=== PATIENT | male | born 1955 | race Asian ===

== ENCOUNTER → 2017-03-17 | Outpatient (CLI) | payer BC ==
--- NOTE | 2017-03-17 12:47 | DIAGNOSTIC IMAGING REPORT ---
THYROID ULTRASOUND HISTORY: Dysphagia. Thyroid nodularity. NECK LUMP,DYPSHAGIA COMPARISON: 07/07/2011 FINDINGS: Right lobe: Maximum dimension 6.0 cm. Several nodular densities measuring up to 8 mm. Left lobe: Maximum dimension 7.7 cm. Dominant primarily cystic nodule measuring 4.8 x 3.5 cm in the lower pole region. This is similar compared to the prior study this is been previously aspirated per history. Isthmus: No nodules. IMPRESSION: 1. Multicystic multinodular thyroid. 2. Dominant primarily cystic nodule of the left thyroid essentially unchanged from the prior study 2010. 3.. Per history This been previously aspirated 4. Multiple additional nodules also stable. Electronically signed by: Alphonse Edwards M.D. 03/17/2017 12:46 PM Dictated Date/Time: 03/17/2017 12:42 PM
== END | disposition home or self-care (01) ==
LOC: C.ULTR 12:14
PROVIDERS: ATTEND Family Medicine
DX: R22.1 Localized swelling, mass and lump, neck (principal); R13.10 Dysphagia, unspecified; E04.2 Nontoxic multinodular goiter

== ENCOUNTER 2017-07-03 16:46 | Emergency (ER) | payer BC ==
[~2017-07-03] VITALS: Ht 170.2 cm; Wt 75.8 kg
[2017-07-03] MEDS ORDERED: ALUMINUM/MAGNESIUM SUSP 30 ML UDC PO STA (16:51)
[2017-07-03] MEDS ORDERED: ASPIRIN 81 MG CHEW PO STA (16:51)
[2017-07-03 16:54] VITALS: TEMP 37.2; Ht 170.2 cm; Wt 75.8 kg
--- NOTE | 2017-07-03 16:56 | EMERGENCY ROOM VISIT NOTE ---
History Report prepared by Scribe: Garima Cast Under the Supervision of: Dr. Baljit De Leon D.O. First contact with patient: 16:48 Chief Complaint: CHEST PAIN Stated Complaint: CHEST PAIN History of Present Illness The patient is a 61 year old male who presents to the Emergency Room with complaints of intermittent chest pain that started yesterday. He states the pain feels "dull" in nature and is located in the middle of his chest. This morning, he went to go on a run, when his pain worsened. He was able to run approximately 2 miles before he had to stop. Nitroglycerin provided minimal pain relief. He also experienced some lightheadedness. He admits to some " slight difficulty breathing" and diaphoresis. He denies any personal cardiac history and has never undergone a stress test or heart catheterization. His PCP is Dr. Dominique at [facility], and he last saw him a few months ago for a routine visit. The patient denies any family history of cardiac issues or sudden at a young age. Source of History: patient Onset: yesterday Position: chest Quality: dull Timing: intermittent Modifying Factors (Relieving): other (Nitroglycerin) Associated Symptoms: + diaphoresis, + SOB Review of Systems See HPI for pertinent positives & negatives. A total of 10 systems reviewed and were otherwise negative. Past Medical & Surgical Medical Problems: (1) GERD (gastroesophageal reflux disease) (2) Hypercholesterolemia (3) Hypertension Social History Alcohol Use: occasionally Drug Use: none Marital Status: Housing Status: lives with family Occupation Status: retired Current/Historical Medications Scheduled Aspirin (Aspirin Ec), 81 MG PO DAILY Fish Oil ([place]-3), 1 CAP PO DAILY Losartan Potassium (Cozaar), 50 MG PO DAILY Lutein-Zeaxanthin (Lutein), 1 CAP PO DAILY Multivitamins/Minerals (Mvi With Minerals), 1 TAB PO DAILY Travoprost (Travatan Z), 1 DROPS OPL DAILY Allergies Coded Allergies: No Known Allergies (Unverified , 07/03/17) Physical Exam Vital Signs Date Time Temp Pulse Resp B/P (MAP) Pulse Ox O2 Delivery O2 Flow Rate FiO2 07/03/17 19:40 83 18 125/81 97 07/03/17 18:08 64 15 138/84 96 Room Air 07/03/17 17:17 67 16 146/83 97 Room Air 07/03/17 17:05 94 07/03/17 17:02 97 Room Air 07/03/17 16:54 37.2 94 16 141/93 99 Room Air Physical Exam GENERAL: Patient is awake, alert, in no acute distress, patient is resting comfortably and showing no signs of anxiety EYES: The conjunctivae are clear. The pupils are round and reactive. EARS, NOSE, MOUTH AND THROAT: The nose is without any evidence of any deformity. Mucous membranes are moist tongue is midline NECK: The neck is nontender and supple. RESPIRATORY: Normal respiratory effort is noted there is no evidence of wheezing rhonchi or rales CARDIOVASCULAR: Regular rate and rhythm noted there no murmurs rubs or gallops normal S1 normal S2 GASTROINTESTINAL: The abdomen is soft. Bowel sounds are present in all quadrants. Abdomen is nontender MUSCULOSKELETAL/EXTREMITIES: There is no evidence of gross deformity full range of motion is noted in the hips and shoulders SKIN: There is no obvious evidence of any rash. There are no petechiae, pallor or cyanosis noted. NEUROLOGIC: Patient is awake alert and oriented x3 Medical Decision & Procedures ER Provider Diagnostic Interpretation: Radiology results as stated below per my review and radiologist interpretation: SINGLE VIEW CHEST CLINICAL HISTORY: Atypical chest pain. FINDINGS: An AP, portable, upright chest radiograph is obtained. No prior studies are available for comparison at the time of dictation. The examination is degraded by portable technique and patient rotation. The cardiomediastinal silhouette is unremarkable. There is mild atherosclerotic calcification of the thoracic aorta. The lungs and pleural spaces are clear. No pneumothorax is seen. The bony thorax is grossly intact. IMPRESSION: No acute cardiopulmonary abnormality. Electronically signed by: Reji Benítez M.D. 07/03/2017 5:31 PM Laboratory Results 07/03/17 17:05 Red Blood Count 5.62, Mean Corpuscular Volume 89.3, Mean Corpuscular Hemoglobin 31.0, Mean Corpuscular Hemoglobin Concent 34.7, Mean Platelet Volume 9.1, Neutrophils (%) (Auto) 53.7, Lymphocytes (%) (Auto) 39.0, Monocytes (%) (Auto) 5.6, Eosinophils (%) (Auto) 1.0, Basophils (%) (Auto) 0.6, Neutrophils # (Auto) 3.63, Lymphocytes # (Auto) 2.64, Monocytes # (Auto) 0.38, Eosinophils # (Auto) 0.07, Basophils # (Auto) 0.04 07/03/17 17:05 Test 07/03/17 17:05 07/03/17 17:10 White Blood Count 6.77 K/uL (4.8-10.8) Red Blood Count 5.62 M/uL (4.7-6.1) Hemoglobin 17.4 g/dL (14.0-18.0) Hematocrit 50.2 % (42-52) Mean Corpuscular Volume 89.3 fL (80-100) Mean Corpuscular Hemoglobin 31.0 pg (25-34) Mean Corpuscular Hemoglobin Concent 34.7 g/dl (32-36) Platelet Count 260 K/uL (130-400) Mean Platelet Volume 9.1 fL (7.4-10.4) Neutrophils (%) (Auto) 53.7 % Lymphocytes (%) (Auto) 39.0 % Monocytes (%) (Auto) 5.6 % Eosinophils (%) (Auto) 1.0 % Basophils (%) (Auto) 0.6 % Neutrophils # (Auto) 3.63 K/uL (1.4-6.5) Lymphocytes # (Auto) 2.64 K/uL (1.2-3.4) Monocytes # (Auto) 0.38 K/uL (0.11-0.59) Eosinophils # (Auto) 0.07 K/uL (0-0.5) Basophils # (Auto) 0.04 K/uL (0-0.2) RDW Standard Deviation 40.1 fL (36.4-46.3) RDW Coefficient of Variation 12.4 % (11.5-14.5) Immature Granulocyte % (Auto) 0.1 % Immature Granulocyte # (Auto) 0.01 K/uL (0.00-0.02) Prothrombin Time 10.7 SECONDS (9.0-12.0) Prothromb Time International Ratio 1.0 (0.9-1.1) Activated Partial Thromboplast Time 23.3 SECONDS (21.0-31.0) Partial Thromboplastin Ratio 0.9 Anion Gap 7.0 mmol/L (3-11) Est Creatinine Clear Calc Drug Dose 58.9 ml/min Estimated GFR () 74.1 Estimated GFR (Non- 64.0 BUN/Creatinine Ratio 15.0 (10-20) Calcium Level 9.7 mg/dl (8.5-10.1) Total Bilirubin 0.7 mg/dl (0.2-1) Direct Bilirubin 0.2 mg/dl (0-0.2) Aspartate Amino Transf (AST/SGOT) 37 U/L (15-37) Alanine Aminotransferase (ALT/SGPT) 77 U/L (12-78) Alkaline Phosphatase 72 U/L (45-117) Total Creatine Kinase 155 U/L (39-308) Creatine Kinase MB 1.1 ng/ml (0.5-3.6) Creatine Kinase MB Ratio 0.7 (0-3.0) Troponin I < 0.015 ng/ml (0-0.045) Total Protein 8.1 gm/dl (6.4-8.2) Albumin 4.2 gm/dl (3.4-5.0) Lipase 333 U/L (73-393) Urine Color YELLOW Urine Appearance CLOUDY (CLEAR) Urine pH 8.0 (4.5-7.5) Urine Specific Ashley 1.018 (1.000-1.030) Urine Protein NEG (NEG) Urine Glucose (UA) NEG (NEG) Urine Ketones NEG (NEG) Urine Occult Blood NEG (NEG) Urine Nitrite NEG (NEG) Urine Bilirubin NEG (NEG) Urine Urobilinogen NEG (NEG) Urine Leukocyte Esterase NEG (NEG) Urine WBC (Auto) 0 /hpf (0-5) Urine RBC (Auto) 0-4 /hpf (0-4) Urine Hyaline Casts (Auto) 0 /lpf (0-5) Urine Epithelial Cells (Auto) 0-5 /lpf (0-5) Urine Bacteria (Auto) NEG (NEG) Laboratory results per my review. Medications Administered Medications (Trade) Dose Ordered Sig/Rosalva Route Start Time Stop Time Status Last Admin Dose Admin Al Hydroxide/Mg Hydroxide (Maalox Susp) 30 ml NOW STAT PO 07/03/17 16:51 07/03/17 16:53 DC 07/03/17 16:58 30 ML Aspirin (Aspirin Chew) 324 mg NOW STAT PO 07/03/17 16:51 07/03/17 16:53 DC 07/03/17 16:58 324 MG ECG Indication: chest pain Rate (beats per minute): 80 Rhythm: normal sinus Findings: no ectopy, other (No acute ST segment abnormalities) Comparison ECG Date: no prior available ED Course 1648: The patient was evaluated in room A12. A complete history and physical examination were performed. 1650: Aspirin 324 mg PO, Maalox Susp 30 ml PO. 1819: I discussed the patients case with Dr. Abel, [facility] Hospitalist. The patient will be further evaluated. 1901: Case Management informed me the patient feels better and would like to go home. 1920: I reevaluated the patient. I discussed the risks associated with leaving the hospital against medical advice and he verbalized complete understanding. Medical Decision Prior records/ancillary studies reviewed. Triage Nursing notes reviewed. The patient's history was concerning for chest pain. Differential diagnosis: Etiologies such as cardiac ischemia, aortic dissection, pulmonary embolism, pneumonia, pneumothorax, musculoskeletal, infections, pericarditis, myocarditis , esophageal rupture, gastrointestinal, as well as others were entertained. The patient has a heart score of 3. The patient is a 61-year-old male who presented to the emergency department for an evaluation of chest pain. The patient describes episodes of chest pain over the left side in the retrosternal region. This appears to be related to exertion. The patient presented to the emergency Department pain free. The patient was treated with aspirin in the emergency department. I discussed the patient's laboratory and radiographic studies with him. I also discussed the limitations of the emergency department workup for chest pain. Discussed his case with the on-call [facility] hospitalist. They've agreed to evaluate the patient in the emergency department for further management and disposition. The patient requested to be discharged to home. Given the patient's description of pain I'm very concerned that this could represent angina. I discussed this with the patient. I discussed the risks of leaving and the patient ultimately signed out AGAINST MEDICAL ADVICE. He was encouraged to rest and avoid any strenuous activity. He was also encouraged to follow-up with his family doctor soon as possible for a stress test or other provocative testing. He was also encouraged to return to the emergency apartment immediately if symptoms change worsen or need arises. Medication Reconcilliation Current Medication List: was personally reviewed by me Blood Pressure Screening Patient's blood pressure: Elevated blood pressure Blood pressure disposition: Elevated BP felt to be situational Consults Time Called: 1814 Consulting Physician: Dr. Abel [facility] Hospitalist Returned Call: [phone] I discussed the patients case with Dr. Abel [facility] Hospitalist. The patient will be further evaluated. Impression Primary Impression: Chest pain Scribe Attestation The scribe's documentation has been prepared under my direction and personally reviewed by me in its entirety. I confirm that the note above accurately reflects all work, treatment, procedures, and medical decision making performed by me. Departure Information Dispostion Against Medical Advice Referrals Bran Canada M.D. (PCP) Patient Instructions ED Chest Pain Atypical Unkn Cause, My [facility] Additional Instructions Return to the emergency department immediately if symptoms change worsen or the need arises. Rest and avoid any strenuous activity. Continue all medications as prescribed. Follow-up with your family doctor soon as possible to discuss the possibility that you may require further studies such as a stress test to evaluate the cause of your pain.
[2017-07-03 17:15] LABS: BASO % 0.6 %; BASO ABS # 0.04 K/uL (0-0.2); COMPLETE YES; HEMATOCRIT 50.2 % (42-52); IG% 0.1 %; LYMPH ABS # 2.64 K/uL (1.2-3.4); MEAN CELL VOLUME 89.3 fL (80-100); MEAN CORPUSCULAR HGB CONC 34.7 g/dl (32-36); MEAN PLATELET VOLUME 9.1 fL (7.4-10.4); MONO % 5.6 %; NEUT % 53.7 %; PLATELET COUNT 260 K/uL (130-400); RED BLOOD COUNT 5.62 M/uL (4.7-6.1); WHITE BLOOD COUNT 6.77 K/uL (4.8-10.8)
[2017-07-03 17:24] LABS: PARTIAL THROMBOPLASTIN RATIO 0.9; PROTHROMBIN TIME (PATIENT) 10.7 SECONDS (9.0-12.0)
[2017-07-03] MEDS ORDERED: LUTE15CA PO (17:30)
[2017-07-03] MEDS ORDERED: MULT-513 PO (17:30)
[2017-07-03] MEDS ORDERED: TRAV0.00 OPL (17:30)
[2017-07-03] MEDS ORDERED: ASPI81TA28 PO (17:30)
[2017-07-03] MEDS ORDERED: LOSA50TA6 PO (17:30)
[2017-07-03] MEDS ORDERED: OMEG10007 PO (17:30)
[2017-07-03 17:32] LABS: ALT/SGPT 77 U/L (12-78); BLOOD UREA NITROGEN 18 mg/dl (7-18); CALCIUM 9.7 mg/dl (8.5-10.1); CARBON DIOXIDE 26 mmol/L (21-32); CHLORIDE 106 mmol/L (98-107); GLUCOSE 104 mg/dl (70-99); POTASSIUM 3.7 mmol/L (3.5-5.1); SODIUM 139 mmol/L (136-145)
--- NOTE | 2017-07-03 17:32 | DIAGNOSTIC IMAGING REPORT ---
SINGLE VIEW CHEST CLINICAL HISTORY: Atypical chest pain. FINDINGS: An AP, portable, upright chest radiograph is obtained. No prior studies are available for comparison at the time of dictation. The examination is degraded by portable technique and patient rotation. The cardiomediastinal silhouette is unremarkable. There is mild atherosclerotic calcification of the thoracic aorta. The lungs and pleural spaces are clear. No pneumothorax is seen. The bony thorax is grossly intact. IMPRESSION: No acute cardiopulmonary abnormality. Electronically signed by: Reji Benítez M.D. 07/03/2017 5:31 PM Dictated Date/Time: 07/03/2017 5:30 PM
[2017-07-03 17:38] LABS: ALKALINE PHOSPHATASE 72 U/L (45-117); AST/SGOT 37 U/L (15-37); CKMB/CK RATIO 0.7 (0-3.0)
[2017-07-03 17:40] LABS: URINE APPEARANCE CLOUDY (CLEAR); URINE BILIRUBIN NEG (NEG); URINE COLOR YELLOW; URINE EPITHELIAL CELL AUTO 0-5 /lpf (0-5); URINE NITRITE NEG (NEG); URINE SPECIFIC GRAVITY 1.018 (1.000-1.030); UROBILINOGEN NEG (NEG)
[2017-07-03 17:47] LABS: MANUAL MICROSCOPIC REQUIRED? NO; REVIEW REQ? NO
[2017-07-03 19:40] VITALS: BP 125/81; PULSE 83; O2SAT 97
== END 2017-07-03 19:40 | disposition left against medical advice (07) ==
LOC: C.EDB 16:48 → C.EDA 19:40
DX: R07.9 Chest pain, unspecified (principal); R42 Dizziness and giddiness; I10 Essential (primary) hypertension; Z79.82 Long term (current) use of aspirin; Z79.899 Other long term (current) drug therapy

== ENCOUNTER 2017-07-10 12:34 | Observation (INO) | payer BC ==
[~2017-07-10] VITALS: Ht 170.2 cm; Wt 73.2 kg
[~2017-07-10 12:34] MED LIST: ASPI81TA28 PO; LOSA50TA6 PO; LUTE15CA PO; MULT-513 PO; OMEG10007 PO; TRAV0.00 OPL
[2017-07-10] MEDS ORDERED: ASPIRIN 81 MG CHEW PO STA (12:57)
[2017-07-10] MEDS ORDERED: NITROGLYCERIN OINT 2% 1GM PACKET EXT STA (12:57)
--- NOTE | 2017-07-10 13:09 | EMERGENCY ROOM VISIT NOTE ---
History Report prepared by Yfn: Yehuda Arechiga Under the Supervision of: Dr. Reji Reis M.D. First contact with patient: 12:53 Chief Complaint: CHEST PAIN Stated Complaint: CHEST PAIN, SOB Nursing Triage Summary: Pt c/o constant mid chest pain for 9 days. Seen last Wednesday for same. [facility] SOB and today tingling in left hand History of Present Illness The patient is a 61 year old male who presents to the Emergency Room with complaints of constant dull centralized chest pain that began a couple of hours ago. He rates his pain a 5/10 in severity. He was seen in the ER 1 week ago for these same symptoms. He was discharged after receiving laboratory work and an ECG. He declined a cardiac stress test. Over this week, his pain lingered as well as his lightheadedness and dizziness. However, earlier today his chest pain came back with shortness of breath as well. He notes some tingling to his left hand. This respiratory issue and left hand feeling are both new today. His chest pain does not radiate anywhere else in his body. 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 He denies any personal history of cardiac disease or previous OR's. He has a history of hypertension. He denies any abdominal pain. He does have a family history of cardiac disease. The patient notes that he and his were in [place] recently for three weeks, and he forgot to bring his hypertension medication. He started it again as soon as he got back. He also takes a baby Aspirin daily. Source of History: patient Onset: a couple of hours ago Position: chest (centralized) Symptom Intensity: 5/10 Quality: dull Timing: constant Modifying Factors (Worsening): exertion Associated Symptoms: + SOB, No abdominal pain Note: He is having lightheadedness and dizziness as well. Review of Systems See HPI for pertinent positives & negatives. A total of 10 systems reviewed and were otherwise negative. Past Medical & Surgical Medical Problems: (1) GERD (gastroesophageal reflux disease) (2) Hypercholesterolemia (3) Hypertension Family History FH: heart disease Social History Smoking Status: Never Smoker Smokeless Tobacco Use: No Alcohol Use: occasionally Drug Use: none Marital Status: Housing Status: lives with family Occupation Status: retired Current/Historical Medications Scheduled Aspirin (Aspirin Ec), 81 MG PO DAILY Fish Oil ([place]-3), 1 CAP PO DAILY Losartan Potassium (Cozaar), 50 MG PO AFTERNOON Lutein-Zeaxanthin (Lutein), 1 CAP PO DAILY Multivitamins/Minerals (Mvi With Minerals), 1 TAB PO DAILY Travoprost (Travatan Z), 1 DROPS OPL DAILY Allergies Coded Allergies: No Known Allergies (Unverified , 07/10/17) Physical Exam Vital Signs Date Time Temp Pulse Resp B/P (MAP) Pulse Ox O2 Delivery O2 Flow Rate FiO2 07/10/17 14:16 68 18 134/83 97 07/10/17 13:06 73 18 138/81 96 07/10/17 12:49 75 07/10/17 12:36 36.7 75 18 117/62 100 Room Air 07/10/17 12:36 99 Room Air Physical Exam GENERAL: Patient is in no acute distress. HEENT: No acute trauma, normocephalic atraumatic, mucous membranes moist, no nasal congestion, no scleral icterus. NECK: No stridor, no adenopathy, no meningismus, trachea is midline. LUNGS: Clear to auscultation bilaterally, no wheeze, no rhonchi, breath sounds equal. HEART: Without murmurs gallops or rubs, regular rate and rhythm. ABDOMEN: Soft, nontender, bowel sounds positive, no hernias, no peritonitis. EXTREMITIES: No cyanosis or edema, full range of motion of all the joints without pain or difficulty, no signs for acute trauma. NEUROLOGIC: Oriented x 3, no acute motor or sensory deficits, no focal weakness. SKIN: No rash, no jaundice, no diaphoresis. Medical Decision & Procedures ER Provider Diagnostic Interpretation: Radiology results as stated below per my review and radiologist interpretation: SINGLE VIEW CHEST CLINICAL HISTORY: Atypical chest pain. FINDINGS: 2 AP, portable, upright chest radiographs are compared to study dated 07/03/2017. The examination is degraded by portable technique and patient rotation. The heart is top normal for projection. The pulmonary vasculature is noncongested. Thyromegaly is suspected. There is atherosclerotic calcification of the thoracic aorta. The lungs and pleural spaces are clear. No pneumothorax is seen. The bony thorax is grossly intact. IMPRESSION: No acute cardiopulmonary abnormality. Electronically signed by: Reji Benítez M.D. 07/10/2017 1:22 PM Dictated Date/Time: 07/10/2017 1:21 PM Laboratory Results 07/10/17 12:50 07/10/17 12:50 Test 07/10/17 12:50 07/10/17 13:38 Red Blood Count 5.47 M/uL (4.7-6.1) Mean Corpuscular Volume 89.4 fL (80-100) Mean Corpuscular Hemoglobin 30.7 pg (25-34) Mean Corpuscular Hemoglobin Concent 34.4 g/dl (32-36) RDW Standard Deviation 40.7 fL (36.4-46.3) RDW Coefficient of Variation 12.4 % (11.5-14.5) Mean Platelet Volume 9.5 fL (7.4-10.4) Anion Gap 10.0 mmol/L (3-11) Est Creatinine Clear Calc Drug Dose 61.5 ml/min Estimated GFR () 78.1 Estimated GFR (Non- 67.4 BUN/Creatinine Ratio 11.7 (10-20) Calcium Level 9.1 mg/dl (8.5-10.1) Total Bilirubin 0.8 mg/dl (0.2-1) Aspartate Amino Transf (AST/SGOT) 29 U/L (15-37) Alanine Aminotransferase (ALT/SGPT) 62 U/L (12-78) Alkaline Phosphatase 73 U/L (45-117) Troponin I < 0.015 ng/ml (0-0.045) Total Protein 7.9 gm/dl (6.4-8.2) Albumin 3.9 gm/dl (3.4-5.0) Globulin 4.0 gm/dl (2.5-4.0) Albumin/Globulin Ratio 1.0 (0.9-2) Lipase 337 U/L (73-393) Prothrombin Time 10.3 SECONDS (9.0-12.0) Prothromb Time International Ratio 1.0 (0.9-1.1) Activated Partial Thromboplast Time 26.1 SECONDS (21.0-31.0) Partial Thromboplastin Ratio 1.0 Laboratory results reviewed by me. Medications Administered Medications (Trade) Dose Ordered Sig/Rosalva Route Start Time Stop Time Status Last Admin Dose Admin Nitroglycerin (Nitroglycerin 2% Oint) 0.5 inch NOW STAT EXT 07/10/17 12:57 07/10/17 13:00 DC 07/10/17 13:08 0.5 INCH Aspirin (Aspirin Chew) 324 mg NOW STAT PO 07/10/17 12:57 07/10/17 13:00 DC 07/10/17 13:08 324 MG ECG Indication: chest pain Rate (beats per minute): 75 Rhythm: normal sinus Findings: nonspecific-ST abn (Diffusely), no ectopy Comparison ECG Date: 07/03/17 Change: Nonspecific ST abnormalities are new compared to old. ED Course 1253: The patient was evaluated in room B5. A complete history and physical exam was performed. 1257: Ordered Aspirin 324 mg PO, Nitroglycerin 0.5 inch EXT 1357: He is feeling better after receiving Nitroglycerin. 1400: Upon reexamination the patient is resting. I discussed results and treatment plan with the patient. He verbalizes agreement and understanding. The patient will be [place]. Du [place] [facility]. Medical Decision Differential diagnosis includes but is not limited to cardiac ischemia, angina, OR, musculoskeletal pain, pneumothorax, pneumonia, pulmonary embolism, and aortic dissection. There is no leukocytosis or concerning anemia. No significant electrolyte abnormality, kidney failure, hepatitis. There is no coagulopathy. No evidence for pancreatitis. EKG shows a normal sinus rhythm with some nonspecific ST change. No acute ischemia. Cardiac enzyme testing 1 is not suggestive of acute cardiac injury. Chest film does not show pneumonia, mediastinal widening or pneumothorax. Patient was given oral aspirin and Nitropaste. His chest pain improved with the Nitropaste. The patient presents with exertional chest pain. I do think a hospital stay is warranted. He has improved with nitroglycerin. I spoke with the patient and case management. The on-call hospitalist was consulted. Medication Reconcilliation Current Medication List: was personally reviewed by me Blood Pressure Screening Patient's blood pressure: Normal blood pressure Blood pressure disposition: Did not require urgent referral Consults Time Called: 1355 Consulting Physician: Dr. Du [place] [facility] Returned Call: 1400 Discussed the patient's case. The patient will be evaluated for further management. Impression Primary Impression: Precordial chest pain Scribe Attestation The scribe's documentation has been prepared under my direction and personally reviewed by me in its entirety. I confirm that the note above accurately reflects all work, treatment, procedures, and medical decision making performed by me. Departure Information Dispostion Being Evaluated By Hospitalist Referrals Bran Canada M.D. (PCP) Patient Instructions My [facility]
[2017-07-10 13:16] LABS: HEMATOCRIT 48.9 % (42-52); MEAN CELL VOLUME 89.4 fL (80-100); MEAN CORPUSCULAR HEMOGLOBIN 30.7 pg (25-34); MEAN CORPUSCULAR HGB CONC 34.4 g/dl (32-36); MEAN PLATELET VOLUME 9.5 fL (7.4-10.4); PLATELET COUNT 276 K/uL (130-400); RED BLOOD COUNT 5.47 M/uL (4.7-6.1); WHITE BLOOD COUNT 5.58 K/uL (4.8-10.8)
--- NOTE | 2017-07-10 13:24 | DIAGNOSTIC IMAGING REPORT ---
SINGLE VIEW CHEST CLINICAL HISTORY: Atypical chest pain. FINDINGS: 2 AP, portable, upright chest radiographs are compared to study dated 07/03/2017. The examination is degraded by portable technique and patient rotation. The heart is top normal for projection. The pulmonary vasculature is noncongested. Thyromegaly is suspected. There is atherosclerotic calcification of the thoracic aorta. The lungs and pleural spaces are clear. No pneumothorax is seen. The bony thorax is grossly intact. IMPRESSION: No acute cardiopulmonary abnormality. Electronically signed by: Reji Benítez M.D. 07/10/2017 1:22 PM Dictated Date/Time: 07/10/2017 1:21 PM
[2017-07-10 13:33] LABS: ALT/SGPT 62 U/L (12-78); AST/SGOT 29 U/L (15-37); BLOOD UREA NITROGEN 14 mg/dl (7-18); BUN/CREATININE RATIO 11.7 (10-20); CALCIUM 9.1 mg/dl (8.5-10.1); CARBON DIOXIDE 23 mmol/L (21-32); CHLORIDE 108 mmol/L (98-107); CREATININE 1.15 mg/dl (0.60-1.40); GLUCOSE 159 mg/dl (70-99); POTASSIUM 3.7 mmol/L (3.5-5.1); SODIUM 141 mmol/L (136-145)
[2017-07-10 13:38] LABS: ALKALINE PHOSPHATASE 73 U/L (45-117)
[2017-07-10 14:18] LABS: PROTHROMBIN TIME (PATIENT) 10.3 SECONDS (9.0-12.0)
--- NOTE | 2017-07-10 14:44 | History and Physical ---
History & Physical Date & Time of Service: Jul 10, 2017 at 14:22 Chief Complaint: Chest Pain, Sob Primary Care Physician: Bran Canada M.D. History of Present Illness Source: patient, clinic records, hospital records Patient is a 61 y/o male, with PMHx of HTN, HLD, and GERD, who presented to the ED because of continued chest pain x1 week. Patient was moving a fridge today when he started to become SOB, lightheadedness, diaphoretic, and dull central chest radiating to L arm. Patient was seen at [facility] ED on 07/03/17 due to similar symptoms. He was treated w/ ASA and Maalox. It was recommended patient be admitted for further evaluation. However, symptoms improved in ED and patient left AMA. Patient states chest pain has never completely resolved since leaving AMA. SOB continues to worsen with activity. He notes Maalox improved his symptoms during last ED visit. He does have a history of GERD. He has not taken any PPI/anti-acids recently. He denies any cardiac history. He denies any DVT/PE. Denies palpitations, pleuritic chest pain, calf tenderness, cough. No tachycardia noted. He was recently in [place] for 3 weeks- he forgot his BP medication but did continue taking ASA 81 mg daily. Patient denies any fever, chills, sweats, dizziness, vision changes, palpitations, edema, wheezing, cough , abdominal pain, nausea, vomiting, diarrhea, urinary symptoms, melena, numbness /tingling, weakness, muscle/joint pain, anxiety/depression, active bleeding, or new skin discoloration/changes. Past Medical/Surgical History Past Medical History: HTN HLD GERD Past Surgical History: retina surgery Family History FH: heart disease Social History Smoking Status: Never Smoker Smokeless Tobacco Use: No Drug Use: none Marital Status: Occupational Status: retired Multi-Drug Resistant Organisms History of MDRO: No Allergies Coded Allergies: No Known Allergies (Unverified , 07/10/17) Home Medications Scheduled Aspirin (Aspirin Ec), 81 MG PO DAILY Fish Oil ([place]-3), 1 CAP PO DAILY Losartan Potassium (Cozaar), 50 MG PO AFTERNOON Lutein-Zeaxanthin (Lutein), 1 CAP PO DAILY Multivitamins/Minerals (Mvi With Minerals), 1 TAB PO DAILY Travoprost (Travatan Z), 1 DROPS OPL DAILY Physical Exam Vital Signs Date Time Temp Pulse Resp B/P (MAP) Pulse Ox O2 Delivery O2 Flow Rate FiO2 07/10/17 14:16 68 18 134/83 97 07/10/17 13:06 73 18 138/81 96 07/10/17 12:49 75 07/10/17 12:36 36.7 75 18 117/62 100 Room Air 07/10/17 12:36 99 Room Air Diagnostics Laboratory Results Results Past 24 Hours Test 07/10/17 12:50 07/10/17 13:38 Range/Units White Blood Count 5.58 4.8-10.8 K/uL Red Blood Count 5.47 4.7-6.1 M/uL Hemoglobin 16.8 14.0-18.0 g/dL Hematocrit 48.9 42-52 % Mean Corpuscular Volume 89.4 80-100 fL Mean Corpuscular Hemoglobin 30.7 25-34 pg Mean Corpuscular Hemoglobin Concent 34.4 32-36 g/dl RDW Standard Deviation 40.7 36.4-46.3 fL RDW Coefficient of Variation 12.4 11.5-14.5 % Platelet Count 276 130-400 K/uL Mean Platelet Volume 9.5 7.4-10.4 fL Sodium Level 141 136-145 mmol/L Potassium Level 3.7 3.5-5.1 mmol/L Chloride Level 108 98-107 mmol/L Carbon Dioxide Level 23 21-32 mmol/L Anion Gap 10.0 3-11 mmol/L Blood Urea Nitrogen 14 7-18 mg/dl Creatinine 1.15 0.60-1.40 mg/dl Est Creatinine Clear Calc Drug Dose 61.5 ml/min Estimated GFR () 78.1 Estimated GFR (Non- 67.4 BUN/Creatinine Ratio 11.7 10-20 Random Glucose 159 70-99 mg/dl Calcium Level 9.1 8.5-10.1 mg/dl Total Bilirubin 0.8 0.2-1 mg/dl Aspartate Amino Transf (AST/SGOT) 29 15-37 U/L Alanine Aminotransferase (ALT/SGPT) 62 12-78 U/L Alkaline Phosphatase 73 45-117 U/L Troponin I < 0.015 0-0.045 ng/ml Total Protein 7.9 6.4-8.2 gm/dl Albumin 3.9 3.4-5.0 gm/dl Globulin 4.0 2.5-4.0 gm/dl Albumin/Globulin Ratio 1.0 0.9-2 Lipase 337 73-393 U/L Prothrombin Time 10.3 9.0-12.0 SECONDS Prothromb Time International Ratio 1.0 0.9-1.1 Activated Partial Thromboplast Time 26.1 21.0-31.0 SECONDS Partial Thromboplastin Ratio 1.0 Diagnostic Radiology SINGLE VIEW CHEST CLINICAL HISTORY: Atypical chest pain. FINDINGS: 2 AP, portable, upright chest radiographs are compared to study dated 07/03/2017. The examination is degraded by portable technique and patient rotation. The heart is top normal for projection. The pulmonary vasculature is noncongested. Thyromegaly is suspected. There is atherosclerotic calcification of the thoracic aorta. The lungs and pleural spaces are clear. No pneumothorax is seen. The bony thorax is grossly intact. IMPRESSION: No acute cardiopulmonary abnormality. Electronically signed by: Reji Benítez M.D. 07/10/2017 1:22 PM Dictated Date/Time: 07/10/2017 1:21 PM The status of this report is Signed. Draft = Not yet reviewed or approved by Radiologist. Signed = Reviewed and approved by Radiologist. EKG AVELINA SAENZ ID:[id number] 10-JUL-2017 12:39:34 [facility] Normal sinus rhythm Normal ECG When compared with ECG of 03-JUL-2017 16:51, No significant change was found 25mm/s 10mm/mV 150Hz 8.0 SP2 12SL 241 CECI: 0 Referred by: Referred Self Unconfirmed Vent. rate 75 BPM LA interval 178 ms QRS duration 82 ms QT/QTc 384/428 ms P-R-T axes 62 12 14 1955 (61 yr) Male Room: Loc:15 Custom Tailor:Makenna Treviño ind: Impression Assessment and Plan Patient is a 61 y/o male, with PMHx of HTN, HLD, and GERD, who presented to the ED because of continued chest pain x1 week. Chest pain, ACS r/o vs GERD vs PE vs other etiology: - Admit to tele for cardiac monitoring - Trend cardiac enzymes- initial trop negative - O2 protocol - EKG QAM and PRN chest pain - IV Morphine and Nitro PRN chest pain - Check lipid panel and HgbA1c - Will keep NPO after MD for ?intervention/further workup needed - stress ECHO tomorrow if cardiac enzymes negative HTN: Continue Losartan 50 mg daily HLD: - Check lipid panel - Continue Fish Oil GI prophylaxis: Protonix 40 mg daily DVT prophylaxis: Heparin SQ BID Code Status: LEVEL I, FULL Dispo: From home, lives w/ - PT/OT and CM consulted Physician Supervision Note: I was present with the PA during the history and exam. I discussed the case with the PA and agree with the findings and plan as documented in the note. Any exceptions or clarifications are listed here: 61 y/o M HTN, HPL, family history of CAD Presents with exertional SOB and CP - intermit > 1 wk - occurred today while raking Recently returned from an [place] holiday where he had not complied with his medications AAO x 3 S1,2 R CTAB NT, ND No CCE P: Symptoms/history concerning for progressive angina Would recommend inpt stress Placed on ASA, Statin - serial enzymes ordered Assigned to telemetry overnight Documented By: Dagoberto Du Level of Care Telemetry Resuscitation Status FULL RESUSCITATION VTE Prophylaxis Given or contraindicated: Unfractionated heparin SQ, T.E.D. Stockings, SCD's
[2017-07-10] MEDS ORDERED: ALUMINUM/MAGNESIUM/SIMETH (MAALOX MAX) 30 ML UDC PO PRN ×2 (15:00→20:15)
[2017-07-10] MEDS ORDERED: ONDANSETRON INJ 2 MG/ML 2 ML VIAL IV PRN (15:00)
[2017-07-10] MEDS ORDERED: MAGNESIUM HYDROXIDE SUSP 30 ML UDC PO PRN (15:00)
[2017-07-10] MEDS ORDERED: ACETAMINOPHEN 325 MG TAB PO PRN (15:00)
[2017-07-10] MEDS ORDERED: POLYETHYLENE (MIRALAX) 17 GM PACK PO PRN (15:00)
[2017-07-10] MEDS ORDERED: NITROGLYCERIN 0.4 MG SL PER TAB CHARGE SL PRN (15:00)
[2017-07-10] MEDS ORDERED: MoRPHine SULFATE 2 MG/ML CARP IV PRN (15:00)
[2017-07-10 15:27] VITALS: Ht 170.2 cm; Wt 73.2 kg
[2017-07-10 15:52] VITALS: O2SAT 98
[2017-07-10] MEDS ORDERED: ATORVASTATIN 20 MG TAB PO SCH ×2 (16:00)
[2017-07-10 16:21] VITALS: BP 132/88; PULSE 76; TEMP 36.9; O2SAT 96
[2017-07-10] MEDS ORDERED: IV FLUIDS COMPLETED PRN (17:45)
[2017-07-10 19:16] VITALS: BP 135/79; PULSE 73; TEMP 36.9; O2SAT 97
[2017-07-10] MEDS ORDERED: TRAVOPROST Z 0.004% OPH SOLN 2.5 ML BTL OPL SCH (21:00)
[2017-07-10] MEDS: HEPARIN SOD 5000 UNIT/0.5 ML CARP SQ SCH (21:10)
[2017-07-10 22:58] VITALS: BP 131/73; PULSE 64; TEMP 36.9; O2SAT 95
[2017-07-11 04:18] VITALS: BP 113/72; PULSE 60; TEMP 36.8; O2SAT 98
[2017-07-11 05:39] LABS: CHOLESTEROL 191 mg/dl (0-200); CHOLESTEROL/HDL RATIO 4.5; HDL CHOLESTEROL 42 mg/dl; LDL CHOLESTEROL CALCULATED 114 mg/dl; TRIGLYCERIDES 174 mg/dl (0-150); VERY LOW DENSITY LIPOPROT CALC 35 mg/dl
[2017-07-11 07:31] VITALS: BP 104/71; PULSE 67; TEMP 36.8; O2SAT 96
[2017-07-11] MEDS ORDERED: ASPIRIN 81 MG ECTAB PO SCH (09:00)
[2017-07-11] MEDS ORDERED: LOSARTAN POTASSIUM 50 MG TAB PO SCH (09:00)
[2017-07-11] MEDS ORDERED: PANTOprazole SOD 40 MG TAB PO SCH (09:00)
[2017-07-11] MEDS ORDERED: OMEGA-3 (PURIFIED FISH OIL) 1 GM CAP PO SCH (09:00)
[2017-07-11] MEDS ORDERED: CEROVITE ADV FORMULA TAB PO SCH (09:00)
[2017-07-11] MEDS: HEPARIN SOD 5000 UNIT/0.5 ML CARP SQ SCH (09:53)
[2017-07-11 10:00] LABS: ESTIMATED AVERAGE GLUCOSE 111 mg/dl; HA1C FLAG Normal (Normal)
[2017-07-11 12:51] VITALS: BP 120/75; PULSE 86; TEMP 36.6; O2SAT 96
--- NOTE | 2017-07-11 13:13 | Discharge Instructions ---
Discharge Instructions Date of Service Jul 11, 2017. Admission Reason for Admission: Precordial Chest Pain Discharge Discharge Diagnosis / Problem: chest pain likely musculoskeletal Discharge Goals Goal(s): Decrease discomfort Activity Recommendations Activity Limitations: resume your previous activity Driving or Machine Use: no limitations . Current Hospital Diet Patient's current hospital diet: AHA Diet (Heart Healthy) Discharge Diet Recommended Diet: Low Fat Diet Pending Studies Studies pending at discharge: no Laboratory Results Hemoglobin A1c Test 07/11/17 04:46 Range/Units Estimated Average Glucose 111 mg/dl Hemoglobin A1c 5.5 4.5-5.6 % Lipid Panel Test 07/11/17 04:46 Range/Units Triglycerides Level 174 H 0-150 mg/dl Cholesterol Level 191 0-200 mg/dl HDL Cholesterol 42 mg/dl Cholesterol/HDL Ratio 4.5 LDL Cholesterol, Calculated 114 mg/dl Medical Emergencies . Who to Call and When: Medical Emergencies: If at any time you feel your situation is an emergency, please call 911 immediately. . Non-Emergent Contact Non-Emergency issues call your: Primary Care Provider . . "Provider Documentation" section prepared by Piotr Bowen. . VTE Core Measure Inpt VTE Proph given/why not?: Unfractionated heparin SQ, T.ESolange. Stockings, SCD 's
[2017-07-11] MEDS ORDERED: FAMO20TA11 PO (13:16)
--- NOTE | 2017-07-11 13:20 | EXERCISE STRESS ECHO ---
*NOTICE TO RECEIVING [employer]Y This information is strictly Confidential and protected under [place] law. [place] law prohibits you from making any further disclosure of this information unless further disclosure is expressly permitted by the written consent of the person to whom it pertains or is authorized by law. A general authorization for the release of medical or other information is not sufficient for this purpose. Hospital accepts no responsibility if the information is made available to any other person, INCLUDING THE PATIENT. Interpretation Summary * Name: AVELINA SAENZ Study Date: 07/11/2017 10:52 AM BP: 121/74 mmHg * Patient Location: [facility] HR: 67 * : 1955 (M/d/yyyy) Gender: Male Height: 67 in * Age: 61 yrs Ethnicity: Weight: 164 lb * Ordering Physician: Kat Branch * Referring Physician: Self, Referred * Performed By: Izaiah Rojas RCS * * Reason For Study: Chest Pain * BSA: 1.9 m2 * -- Conclusions -- * 1. Normal stress echocardiogram at 10.8 METS and a peak heart rate greater than 100% predicted maximum. * 2. No exercise-induced chest pain. * 3. No EKG changes. * 4. Baseline echocardiogram notes normal left ventricular systolic function without wall motion abnormality. Procedure Details * Left Ventricle The left ventricle is normal in size. There is normal left ventricular wall thickness. Left ventricular systolic function is normal. No segmental left ventricular wall motion abnormalities are noted. Resting wall motion: Normal. Stress wall motion: Appropriate increase in Left ventricular systolic function and decrease in cavity size. No stress induced segmental wall motion abnormalities. * Stress Parameters The stress portion of this study was personally supervised by the undersigned interpreting physician. Rest heart rate was '67' BPM. Rest blood pressure was '121/74' Maximum heart rate achieved was 166 bpm. Maximum heart rate was 105 % of maximum age-predicted heart rate. Maximum blood pressure was '201/101' Total exercise time was '9:30' Maximum exercise MET level achieved was '10.8' METS Maximum treadmill speed was '4.2' miles per hour. Maximum treadmill elevation was '16'% grade. Exercise was terminated due to 'fatigue after achieving target heart rate' Normal blood pressure response to exercise. *
[2017-07-11 13:22] VITALS: BP 120/75; PULSE 86; TEMP 36.6; O2SAT 96
--- NOTE | 2017-07-11 13:51 | Discharge Summary ---
Discharge Summary Date of Service Jul 11, 2017. Discharge Summary Admission Date: Jul 10, 2017 at 15:07 Discharge Date: Jul 11, 2017 Discharge Disposition: Home Principal Diagnosis: chest pain likely musculoskeletal or secondary to gastric reflux Problems/Secondary Diagnoses: Musculoskeletal chest pain GERD Hypertension Borderline dyslipidemia Medication Reconciliation New Medications: Famotidine (Pepcid) 20 Mg Tab 20 MG PO BID for 7 Days, #14 TAB Continued Medications: Aspirin (Aspirin Ec) 81 Mg Tab 81 MG PO DAILY Fish Oil ([place]-3) 1 Ea Cap 1 CAP PO DAILY, CAP Losartan Potassium (Cozaar) 50 Mg Tab 50 MG PO AFTERNOON, TAB Lutein-Zeaxanthin (Lutein) 1 Cap Cap 1 CAP PO DAILY Multivitamins/Minerals (Mvi With Minerals) Tab 1 TAB PO DAILY, TAB Travoprost (Travatan Z) 0.004 % Dominick 1 DROPS OPL DAILY, #1 BTL 5 Refills Discharge Exam Review of Systems: Constitutional: No fever, No chills, No sweats, No weight loss, No weakness , No fatigue, No problem reported Eyes: No worsening of vision, No eye pain, No redness, No discharge, No diplopia, No problem reported ENT: No hearing loss, No unusual epistaxis, No nasal symptoms, No sore throat, No tinnitus, No dental problems, No trouble swallowing, No problem reported Respiratory: No cough, No sputum, No wheezing, No shortness of breath, No dyspnea on exertion, No dyspnea at rest, No hemoptysis, No problem reported Cardiovascular: No chest pain, No orthopnea, No PND, No edema, No claudication, No palpitations, No problem reported Abdomen: No pain, No nausea, No vomiting, No diarrhea, No constipation, No GI bleeding, No problem reported Musculoskeletal: No joint pain, No muscle pain, No swelling, No calf pain, No problem reported Genitourinary - Male: No hematuria, No dysuria, No urinary frequency, No urinary urgency, No urinary hesitancy, No urinary retention, No urinary incontinence, No penile discharge, No lesions, No impotence, No problem reported Neurologic: No memory loss, No paralysis, No weakness, No numbness/tingling , No vertigo, No balance problems, No problem reported Psychiatric: No depression symptoms, No anhedonism, No anxiety, No insomnia , No substance abuse, No problem reported Endocrine: No fatigue, No excessive thirst, No excessive urination, No problem reported Hematologic / Lymphatic: No abnormal bleeding/bruising, No clotting problems , No swollen lymph nodes, No night sweats, No problem reported Integumentary: No rash, No itch, No new/changing skin lesions, No color change, No bleeding, No problem reported Physical Exam: General Appearance: WD/WN, no apparent distress Eyes: normal inspection, EOMI ENT: normal ENT inspection, hearing grossly normal Neck: supple Respiratory/Chest: chest non-tender, lungs clear, normal breath sounds, no respiratory distress, no accessory muscle use Cardiovascular: regular rate, rhythm, no edema, no gallop, no JVD, no murmur Abdomen / GI: normal bowel sounds, non tender, soft, no organomegaly, no pulsatile mass Extremities: normal inspection, no calf tenderness, normal capillary refill , no pedal edema, normal range of motion Neurologic/Psychiatric: conference planner II-XII nml as tested, no motor/sensory deficits , alert, normal mood/affect, normal reflexes, oriented x 3 Skin: normal color, warm/dry, no rash Hospital Course Patient is a 61 y/o male with past medical history of hypertension, borderline high cholesterol and gastric acid reflux disease. Patient had intermittent 1 week chest pain presented to the ED a few days ago and felt much better after taking Maalox, he signed AGAINST MEDICAL ADVICE. Unfortunately his chest pain came back and has been intermittent and since then so he came back and was admitted to rule out ACS. CPK and troponin were negative 3 Lipids panel was obtained and showed LDL of 114 Hemoglobin A1c was within normal limits. Patient had a stress test that was negative for any ischemia. 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 Discharge Instructions Please refer to the electronic Patient Visit Report (Discharge Instructions) for additional information.
== END 2017-07-11 13:37 | disposition home or self-care (01) ==
LOC: C.EDB 12:35 → C.MED 15:07 → ENRESERV 15:30
PROVIDERS: ADMIT Internal Medicine; ATTEND Internal Medicine
DX: R07.89 Other chest pain (principal); K21.9 Gastro-esophageal reflux disease without esophagitis; I10 Essential (primary) hypertension; Z79.82 Long term (current) use of aspirin; Z98.890 Other specified postprocedural states; Z79.899 Other long term (current) drug therapy; Z82.49 Family history of ischemic heart disease and other diseases of the circulatory system